=== PATIENT | male | born 1960 | race Caucasian/White ===

== ENCOUNTER → 2020-07-14 09:55 | Outpatient (CLI) | payer OTHER, SELFPAY ==
--- NOTE | ~2020-07-14 | CT_ITS ---
EXAMINATION: CT soft tissue neck wo/w con DATE: 07/14/2020 10:39 INDICATION: Left neck mass. TECHNIQUE: Computed tomography (CT) of the neck was performed without and with 75 mL Omnipaque-350 in travenous contrast. Automated exposure control and iterative reconstruction technique were employed. The dose-length product was 899.37 mGy-cm. COMPARISON: None FINDINGS: There is a 3.9 x 2.9 x 3.1 cm lipoma in left neck. There are no pathologically enlarged lym ph nodes. There is plaque in the proximal internal carotid arteries with 0% stenosis relative to norm al distal artery lumen diameters. There is severe cervical spondylosis. IMPRESSION: 1. Lipoma in left neck. Reviewed, dictated and finalized at location A. NEL TURNER IMPRESSION: 1. Lipoma in left neck.
[2020-07-14 10:24] LABS: Estimated Glomerular Filt Rate > 60
== END ==
PROVIDERS: PCP Family Medicine
DX: R22.1 Localized swelling, mass and lump, neck (principal)
CPT/HCPCS: 70492; Q9967